=== PATIENT | female | born 1945 | race Caucasian/White ===

== ENCOUNTER 2016-04-26 18:16 | Emergency (ER) | payer OTHER, BC ==
[~2016-04-26] VITALS: Ht 152.4 cm; Wt 78.8 kg
[~2016-04-26 18:16] MED LIST: PRAV20TA PO; PSYL55.43 PO; RSTOPS OP
[2016-04-26 18:20] VITALS: TEMP 36.7; Ht 152.4 cm; Wt 78.8 kg
[2016-04-26 19:01] LABS: HEMATOCRIT 38.8 % (37-47); MEAN CELL VOLUME 86.6 fL (80-100); MEAN CORPUSCULAR HEMOGLOBIN 29.5 pg (25-34); MEAN PLATELET VOLUME 10.1 fL (7.4-10.4); PLATELET COUNT 309 K/uL (130-400); RED BLOOD COUNT 4.48 M/uL (4.2-5.4); WHITE BLOOD COUNT 14.64 K/uL (4.8-10.8)
[2016-04-26 19:11] LABS: INR 0.9 (0.9-1.1); PARTIAL THROMBOPLASTIN RATIO 0.9; PROTHROMBIN TIME (PATIENT) 10.1 SECONDS (9.0-12.0)
[2016-04-26 19:21] LABS: ALT/SGPT 21 U/L (12-78); AST/SGOT 12 U/L (15-37); BLOOD UREA NITROGEN 16 mg/dl (7-18); BUN/CREATININE RATIO 19.2 (10-20); CALCIUM 8.8 mg/dl (8.5-10.1); CARBON DIOXIDE 29 mmol/L (21-32); CHLORIDE 105 mmol/L (98-107); CREATININE 0.85 mg/dl (0.60-1.20); GLUCOSE 120 mg/dl (70-99); POTASSIUM 3.7 mmol/L (3.5-5.1); SODIUM 142 mmol/L (136-145)
[2016-04-26 19:26] LABS: ALKALINE PHOSPHATASE 110 U/L (45-117)
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
[2016-04-26 19:48] LABS: BASO % 0.3 %; BASO ABS # 0.04 K/uL (0-0.2); COMPLETE YES; IG% 0.3 %; LYMPH % 11.7 %; LYMPH ABS # 1.72 K/uL (1.2-3.4); MONO % 8.7 %
[2016-04-26] MEDS ORDERED: DOXY-300 PO (20:01)
[2016-04-26] MEDS ORDERED: IBUP-1050 PO (20:01)
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
[2016-04-26] MEDS ORDERED: OPTIRAY 320 IV PRN (20:15)
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
[2016-04-26 21:10] LABS: URINE APPEARANCE CLEAR (CLEAR); URINE BILIRUBIN NEG (NEG); URINE COLOR YELLOW; URINE NITRITE NEG (NEG); URINE PH 5.5 (4.5-7.5); URINE SPECIFIC GRAVITY 1.011 (1.000-1.030); UROBILINOGEN NEG (NEG)
[2016-04-26 21:11] LABS: MANUAL MICROSCOPIC REQUIRED? NO; REVIEW REQ? NO
[2016-04-26 22:50] VITALS: BP 116/74; PULSE 64; O2SAT 99
== END 2016-04-26 22:50 | disposition home or self-care (01) ==
LOC: C.EDB 18:17 → C.EDD 22:50
DX: R51 Headache (principal); R10.13 Epigastric pain; M54.9 Dorsalgia, unspecified; V53.6XXA Passenger in pick-up truck or van injured in collision with car, pick-up truck or van in traffic accident, initial encounter; Z79.899 Other long term (current) drug therapy

== ENCOUNTER → 2016-05-06 | Outpatient (CLI) | payer OTHER, BC ==
[~2016-05-06] MED LIST changes: +DOXY-300 PO; +IBUP-1050 PO; -RSTOPS OP
--- NOTE | 2016-05-06 13:45 | MAMMOGRAPHY REPORT ---
BILATERAL DIGITAL SCREENING MAMMOGRAM WITH CAD: 05/06/2016 CLINICAL HISTORY: Routine screening. Patient has no complaints. TECHNIQUE: Current study was also evaluated with a Computer Aided Detection (CAD) system. Bilatera l CC and MLO views were obtained. COMPARISON: Comparison is made to exams dated: 04/25/2015 mammogram, 04/22/2014 mammogram - [facility], and 04/17/2013 mammogram - [facility]. Also 04/10/2012 and 04/09 and 03/30/2010 exams. BREAST COMPOSITION: The tissue of both breasts is heterogeneously dense, which may obscure small ma sses. FINDINGS: No suspicious masses, calcifications, or areas of architectural distortion are noted in e ither breast. There has been no significant interval change compared to prior exams. IMPRESSION: ACR BI-RADS CATEGORY 1: NEGATIVE There is no mammographic evidence of malignancy. A 1 year screening mammogram is recommended. The p atient will receive written notification of the results. Approximately 10% of breast cancers are not detected with mammography. A negative mammographic repor t should not delay biopsy if a clinically suggestive mass is present. Maria D Barrera M.D. ah/:05/06/2016 12:44:27 Wardrobe Assistant: Rosa WOMACK(Gideon)([place]), [facility] letter sent: Normal 1/2 BI-RADS Code: ACR BI-RADS Category 1: Negative
== END | disposition home or self-care (01) ==
LOC: C.MAMM 11:58
PROVIDERS: ATTEND Obstetrics & Gynecology
DX: Z12.31 Encounter for screening mammogram for malignant neoplasm of breast (principal)

== ENCOUNTER → 2016-10-18 | Outpatient (CLI) | payer OTHER, BC ==
--- NOTE | 2016-10-18 19:10 | DIAGNOSTIC IMAGING REPORT ---
CT SCAN OF THE LEFT FOOT WITHOUT IV CONTRAST CLINICAL HISTORY: Degenerative joint disease. COMPARISON STUDY: No priors. TECHNIQUE: CT scan of the left foot is performed from the ankle joint to the base of the foot. Images are reviewed in the axial, sagittal, and coronal planes. IV contrast was not administered for this examination. Note that interpretation is suboptimal without plain film correlate. A dose lowering technique was utilized adhering to the principles of ALARA. CT DOSE: 27.57 mGy.cm FINDINGS: The skeletal structures are osteopenic. No acute fracture is seen. There is mild arthritic change at the first metatarsophalangeal joint. No bony erosion is identified. There is advanced arthritic change with near-complete loss of the joint space seen at the second, third, and fourth tarsometatarsal articulations. There is associated bony sclerosis and subchondral cyst formation at these joints. Mild overgrowth is observed. The remaining joint spaces of the foot appear preserved. There is no evidence of Lisfranc injury. There is no evidence of osteochondral defect in the talar dome. The overlying soft tissues are normal as visualized. The Achilles tendon is intact as imaged. There is no ankle joint effusion. Normal fat is maintained within the sinus tarsi. IMPRESSION: 1. No acute bony abnormality is identified. 2. Osteopenia and arthritic change as above. This is severe at the second, third, and fourth tarsometatarsal articulations. Dictated: 10/18/2016 4:19 PM Transcribed: 10/18/2016 7:09 PM [email or web address] Electronically signed by: Jared Sharif M.D. 10/18/2016 7:18 PM Dictated Date/Time: 10/18/2016 4:19 PM
== END | disposition home or self-care (01) ==
LOC: C.CTS 15:49
PROVIDERS: ATTEND Orthopaedic Surgery Sports Medicine
DX: M19.072 Primary osteoarthritis, left ankle and foot (principal); M85.872 Other specified disorders of bone density and structure, left ankle and foot